=== PATIENT | female | born 1955 | race Caucasian/White ===

== ENCOUNTER → 2019-01-22 | Outpatient (CLI) | payer OTHER ==
--- NOTE | 2019-01-22 09:58 | RAD ---
EXAM: PA and Lateral Views of the Chest DATE: 01/22/2019 12:00 AM INDICATION: Back pain, pneumonitis, COPD COMPARISON: No Prior FINDINGS: The heart is not enlarged. Mediastinal and hilar contours are normal. No focal parenchymal airspace opacity. Emphysematous changes are seen bilaterally. No pleural effusion or pneumothorax. IMPRESSION: Emphysematous changes bilaterally. No lobar consolidation. Electronically signed by: Murali Bustillos MD (01/22/2019 9:55 AM) [id number]
--- NOTE | 2019-01-22 09:59 | RAD ---
EXAM: AP and lateral views of the lumbar spine DATE: 01/22/2019 12:00 AM INDICATION: Back pain, back injury 2 years ago COMPARISON: No Prior FINDINGS: For the purposes of this report there are 5 nonrib-bearing lumbar-type vertebral bodies. Vertebral body heights are preserved. Intervertebral disc heights are preserved. Mild to moderate L4-5 and L5-S1 facet degenerative change. No spondylolisthesis. IMPRESSION: 1. Negative acute fracture or subluxation. 2. Mild to moderate L4-5 and L5-S1 facet degenerative change. Electronically signed by: Murali Bustillos MD (01/22/2019 9:57 AM) [id number]
== END | disposition home or self-care (01) ==
LOC: PF 09:14
PROVIDERS: ATTEND Family Medicine
DX: M47.817 Spondylosis without myelopathy or radiculopathy, lumbosacral region (principal); J43.9 Emphysema, unspecified; J67.9 Hypersensitivity pneumonitis due to unspecified organic dust
CPT/HCPCS: 71046; 72100; 94010; 94729